=== PATIENT | female | born 1950 | race Caucasian/White ===

== ENCOUNTER → 2020-09-02 | Outpatient (CLI) | payer MEDICARE | END | disposition home or self-care (01) | LOC: RAH 14:40 | PROVIDERS: ATTEND Family Medicine Sports Medicine | DX: M48.061 Spinal stenosis, lumbar region without neurogenic claudication (principal); M51.15 Intervertebral disc disorders with radiculopathy, thoracolumbar region; R60.9 Edema, unspecified; K76.0 Fatty (change of) liver, not elsewhere classified | CPT/HCPCS: 72148 ==

== ENCOUNTER 2021-01-09 11:38 | Day surgery (SDC) | payer MEDICARE ==
[2021-01-08 13:28] VITALS: BP 140/81
[~2021-01-09] VITALS: Ht 160 cm; Wt 88.5 kg
[~2021-01-09 11:38] MED LIST: AEC81 PO; ALEN35TA51 PO; PANT20TA18 PO; VENL-191 PO; VITAMIN D3 PO
[2021-01-09] MEDS ORDERED: LACTATED RINGERS 1000ML 1,000 ML IV ONE (12:05)
== END 2021-01-09 12:49 | disposition home or self-care (01) ==
LOC: DAH 11:38
PROVIDERS: ATTEND Family Medicine Sports Medicine
DX: M51.36 Other intervertebral disc degeneration, lumbar region (principal); G89.29 Other chronic pain; M54.5 Low back pain; Z20.822 Contact with and (suspected) exposure to COVID-19; Z53.8 Procedure and treatment not carried out for other reasons
CPT/HCPCS: C9803; J7120; U0003

== ENCOUNTER 2021-01-30 11:50 | Day surgery (SDC) | payer MEDICARE ==
[2021-01-27 09:31] LABS: BASOPHILS % (AUTO) 0.5 % (0.0-5.0); EOSINOPHILS % (AUTO) 3.6 % (0.0-8.0); HEMATOCRIT 42.4 % (36-48); LYMPHOCYTES % (AUTO) 34.1 % (21.0-51.0); MEAN CORPUSCULAR HEMOGLOBIN 31.7 pg (27.0-33.0); MEAN CORPUSCULAR HGB CONC 33.5 g/dL (32.0-36.0); MEAN CORPUSCULAR VOLUME 94.6 fL (79-99); MONOCYTES % (AUTO) 10.1 % (3.0-13.0); NEUTROPHILS % (AUTO) 51.5 % (40.0-77.0); PLATELET COUNT (AUTO) 219 K/uL (130-400); RED BLOOD CELL COUNT(AUTO) 4.48 MIL/uL (4.00-5.50); RED CELL DISTRIBUTION WIDTH 12.5 % (11.0-15.5); WHITE BLOOD COUNT (AUTO) 6.3 K/uL (4.8-10.8)
[2021-01-27 09:42] LABS: CREATININE 0.9 mg/dL (0.5-1.5); POTASSIUM 5.1 mmol/L (3.5-5.1)
[~2021-01-30] VITALS: Ht 162.6 cm; Wt 90.9 kg
[2021-01-30] MEDS ORDERED: IOPAMIDOL 10 ML VIAL ONE (12:16)
[2021-01-30] MEDS ORDERED: DEXAMETHASONE SOD PHOSPHATE 4 MG/ML 1ML VIAL ONE (12:17)
[2021-01-30 12:19] VITALS: BP 141/78
[2021-01-30] MEDS ORDERED: LIDOCAINE HCL-MPF 1% 2ML VIAL ONE (12:19)
[2021-01-30] MEDS ORDERED: LIDOCAINE HCL MPF 1% 5ML VIAL ONE (12:21)
[2021-01-30] MEDS ORDERED: LACTATED RINGERS 1000ML 1,000 ML IV ONE (12:25)
[2021-01-30 13:30] VITALS: BP 138/70
[2021-01-30 13:45] VITALS: BP 133/76
[2021-01-30 14:00] VITALS: BP 133/76
== END 2021-01-30 14:10 | disposition home or self-care (01) ==
LOC: DAH 11:50
PROVIDERS: ATTEND Family Medicine Sports Medicine
DX: M51.16 Intervertebral disc disorders with radiculopathy, lumbar region (principal); G89.29 Other chronic pain; Z20.822 Contact with and (suspected) exposure to COVID-19; I10 Essential (primary) hypertension; J45.909 Unspecified asthma, uncomplicated; E78.5 Hyperlipidemia, unspecified; E11.9 Type 2 diabetes mellitus without complications; G47.33 Obstructive sleep apnea (adult) (pediatric); K21.9 Gastro-esophageal reflux disease without esophagitis; G43.909 Migraine, unspecified, not intractable, without status migrainosus; Z90.89 Acquired absence of other organs; Z90.710 Acquired absence of both cervix and uterus; Z98.51 Tubal ligation status; Z82.49 Family history of ischemic heart disease and other diseases of the circulatory system; Z80.9 Family history of malignant neoplasm, unspecified; Z83.3 Family history of diabetes mellitus; Z87.891 Personal history of nicotine dependence; Z79.82 Long term (current) use of aspirin; Z98.890 Other specified postprocedural states; Z79.899 Other long term (current) drug therapy
CPT/HCPCS: 36415; 62323; 80048; 85025; 93005; A4215 ×2; A4222; A4223; A4606; A4657; A4663; C9803; J1100; J3490 ×2; J7120; Q9966; U0003; 62320; 76000; 77003